=== PATIENT | female | born 1985 | race Caucasian/White ===

== ENCOUNTER 2016-05-27 20:15 | Outpatient (CLI) | payer OTHER ==
[~2016-05-27] VITALS: Ht 165.1 cm; Wt 76.4 kg
[2016-05-27 21:00] VITALS: BP 132/79
[2016-05-27 21:15] LABS: BILIRUBIN,URINE Negative (Negative); GLUCOSE, URINE (UA) Negative (Negative); LEUKOCYTE ESTERASE ,URINE Negative (Negative); PH,URINE 6.5 (5.0 - 8.0); UROBILINOGEN,URINE 0.2 mg/dL (0.2-1.0)
[2016-05-27 21:19] LABS: CLARITY,URINE Slightly Cloudy; COLOR,URINE Light Yellow
[2016-05-27 21:20] LABS: RBC,URINE 0-2 /HPF; URINE CENTRIFUGED VOLUME <10mL Unspun
[2016-05-27] MEDS ORDERED: PNV91TAB3 PO (21:24)
[2016-05-27 22:00] VITALS: BP 122/76
[2016-05-27] MEDS ORDERED: TERBUTALINE 1 MG/ML (BRETHINE) 1 ML AMP ONE (22:08)
[2016-05-27] MEDS ORDERED: TERBUTALINE 1 MG/ML (BRETHINE) 1 ML AMP SC ONE ×2 (22:15→23:15)
[2016-05-27 23:00] VITALS: BP 125/75
[2016-05-27] MEDS ORDERED: fentaNYL 100 MCG/2 ML VIAL ONE (23:07)
[2016-05-27] MEDS: fentaNYL 100 MCG/2 ML VIAL IV PRN (23:09)
[2016-05-27] MEDS ORDERED: [UNRECOGNIZED DRUG - OTHER] IM ONE (23:39)
[2016-05-27 23:53] VITALS: BP 122/68
[2016-05-28] MEDS ORDERED: SODIUM CHLORIDE 100 ML ONE (00:05)
[2016-05-28] MEDS ORDERED: AMPICILLIN 2000 MG VIAL ONE (00:05)
[2016-05-28] MEDS ORDERED: AMPICILLIN INJ 2,000 MG in SODIUM CHLORIDE 100 ML IV ONE (00:05)
[2016-05-28] MEDS ORDERED: NIFEDIPINE 10 MG PO SCH (00:10)
[2016-05-28] MEDS ORDERED: NIFEDIPINE 10 MG PO ONE (00:10)
--- NOTE | 2016-05-28 00:13 | History and Physical (E) ---
History & Physical (OB) Subjective: CC: contractions 30 year old at 33 3/7 WGA by LMP, confirmed by 10 week ultrasound, presents this evening with contractions. She started having what she felt were Ermias-Arndt this morning, which progressed to stronger contractions spaced 6- 7 minutes apart by this evening. On presentation, she was jordan every 2-4 minutes with moderate intensity. She had some mild cramping last week preceded by a general feeling of malaise, but felt well again until today. This has been uncomplicated other than Rh- status. PNC: [facility] OB Hx: SVDx3, at 39, 38, and 37 weeks respectively PMHx: none PSHx: to [facility]. Homemaker. Mennonite. No tob/EtOH/ILD. Fam HX: adopted Allergies: Coded Allergies: No Known Drug Allergies (Unverified , 05/27/16) Home Medications: Reported Medications Pnv95/Ferrous Fumarate/FA ( Caplet)1 Each Tablet1 Each PO DAILY 05/27/16 Objective: Vital Signs Date Time Temp Pulse Resp B/P Pulse Ox O2 Delivery O2 Flow Rate FiO2 05/27/16 22:00 99.2 113 26 122/76 Laboratory Results Past 24 Hrs 05/27/16 20:25: Urine Bacteria Rare, Urine Bilirubin Negative, Urine Clarity Slightly cloudy, Urine Collection Type Random voided, Urine Color Light yellow, Urine Glucose (UA ) Negative, Urine Ketones Negative, Urine Leukocyte Esterase Negative, Urine Nitrite Negative, Urine Protein Negative, Urine RBC 0-2, Urine RBC (Auto) Trace- intact, Urine Specific [employer] 1.010, Urine Squamous Epithelial Cells >100, Urine Urobilinogen 0.2, Urine WBC 0-2, Urine pH 6.5, Volume Urine Centrifuged < 10ml unspun General: Alert and oriented, NAD Chest: CTA Abdomen: Gravid Cardiovasular: RRR, No murmur Extremities: No edema FHT's: 150s, mod reactive, + accels, no decels Cat I Cvx: 2.5/50/-3, intact membranes Brule: Q1-2 min Screenings: Blood type: A Negative, Rubella Immune , RPR non-reactive, HBV Negative, HIV Negative , GBS Unknown. Problems/Plans: (1) contractions Assessment & Plan: Patient was given 1L NS with no change in contractions, and UA was negative. 0.25mg of terbutaline was administered with a brief lessening of intensity, but no decrease in frequency. No cervical change as of approx 2 hours from presentation, so another dose of terbutaline was given as well as 25mcg fentanyl for pain relief. That helped with the pain of the contractions, but again no change in strength or frequency. Cervix at that time was slightly more effaced, so the decision was made to transfer to higher level of care for possible delivery and need of a NICU. We discussed the possibility of continued tocolysis until her cervix made more change, but with her history of rapid labors, I felt it was prudent to transfer sooner rather than later. 12mg of betamethasone was given, and 2gm ampicillin started for GBS prophylaxis. Discussed with Dr. Swathi Dawn at [facility] and she is accepting. She recommended a 20mg dose of nifedipine before transfer, so that was given as well. (2) with 33 completed weeks gestation (3) Rh negative status during Assessment & Plan: Rhogam received at 28 weeks. Additional Copies to: End of Report . KAM CORREA MD May 27, 2016 23:21
[2016-05-28] MEDS: fentaNYL 100 MCG/2 ML VIAL IV PRN (00:21)
[2016-05-28] MEDS ORDERED: [UNRECOGNIZED DRUG - OTHER] IM SCH (09:00)
[2016-06-25] MEDS ORDERED: IBUP-1772 PO (12:09)
== END 2016-05-28 00:47 | disposition other institution (70) ==
LOC: EUOP 20:15 → OB 20:16 → EUOP 05-28 00:47
PROVIDERS: ATTEND Family Medicine
DX: O47.03 False labor before 37 completed weeks of gestation, third trimester (principal); Z3A.33 33 weeks gestation of pregnancy
CPT/HCPCS: 81003; 81015; 96361; 96365; 96372; 96375; 96376; 99205; J0290; J0702; J3010; J3105; J7030; J7050

== ENCOUNTER → 2016-05-28 | Outpatient (CLI) | payer OTHER ==
[~2016-05-28] MED LIST: IBUP-1772 PO; PNV91TAB3 PO
== END ==
LOC: EMS 01:00
DX: O47.03 False labor before 37 completed weeks of gestation, third trimester (principal); Z3A.33 33 weeks gestation of pregnancy

== ENCOUNTER 2016-06-19 05:13 | Outpatient (CLI) | payer OTHER ==
[~2016-06-19] VITALS: Ht 165.1 cm; Wt 77.7 kg
[2016-06-19 05:25] VITALS: BP 116/80
[2016-06-19 07:30] VITALS: BP 119/77
== END 2016-06-19 07:40 | disposition home or self-care (01) ==
LOC: OB 05:13 → EUOP 05:13
PROVIDERS: ATTEND Family Medicine
DX: O47.03 False labor before 37 completed weeks of gestation, third trimester (principal); Z3A.36 36 weeks gestation of pregnancy
CPT/HCPCS: 99203

== ENCOUNTER 2016-06-24 12:25 | Inpatient (IN) | payer OTHER ==
[~2016-06-24] VITALS: Ht 165.1 cm; Wt 80.0 kg
[2016-06-24] VITALS (15 sets, daily range): BP systolic 103–133; BP diastolic 58–84
[2016-06-24] MEDS ORDERED: OXYTOCIN INJ 20 UNIT in NS 1000ml 1,000 ML IV PRN (12:51)
[2016-06-24] MEDS ORDERED: SODIUM CHLORIDE FLUSH 3 ML SYR IV PRN (12:55)
[2016-06-24] MEDS ORDERED: CALCIUM CARBONATE CHEWABLE 300 MG (TUMS) TABLET PO PRN (12:55)
[2016-06-24] MEDS ORDERED: SODIUM CHLORIDE FLUSH 10 ML SYR IV PRN (12:55)
[2016-06-24] MEDS ORDERED: AMPICILLIN INJ 2,000 MG in SODIUM CHLORIDE 100 ML IV SCH (12:55)
[2016-06-24] MEDS ORDERED: SODIUM CHLORIDE 100 ML ONE (12:57)
[2016-06-24] MEDS ORDERED: AMPICILLIN 2000 MG VIAL ONE (12:57)
[2016-06-24 13:19] LABS: MEAN CORPUSCULAR HEMOGLOBIN 29.9 PG (26.0-34.0); MEAN PLATELET VOLUME 10.8 FL (6.0-9.5); WHITE BLOOD COUNT 8.23 10^3uL (4.0-11.0)
[2016-06-24] MEDS ORDERED: OXYTOCIN INJ 20 UNIT in NS 1000ml 1,000 ML IV SCH (15:45)
[2016-06-24] MEDS ORDERED: ROPIVACAINE 1% 10 MG/ML (NAROPIN) 20 ML AMPUL ONE (16:00)
[2016-06-24] MEDS ORDERED: AMPICILLIN INJ 1,000 MG in SODIUM CHLORIDE 50 ML IV SCH (16:55)
[2016-06-24] MEDS ORDERED: LANOLIN OINTMENT 28 GM TUBE TOP PRN (18:50)
[2016-06-24] MEDS ORDERED: HYDROcodone/APAP 5 MG/325 MG (NORCO) TAB PO PRN (18:50)
[2016-06-24] MEDS ORDERED: ARTIFICIAL TEARS (REFRESH) OPHTHALMIC DROPS OS PRN (19:25)
[2016-06-24] MEDS ORDERED: DOCUSATE SODIUM 100 MG (COLACE) CAP PO SCH (21:00)
[2016-06-24] MEDS ORDERED: SODIUM CHLORIDE FLUSH 10 ML ONE (21:22)
[2016-06-24] MEDS: IBUPROFEN 600 MG (MOTRIN) TAB PO PRN (22:29)
[2016-06-25 08:00] VITALS: BP 128/68
[2016-06-25] MEDS: IBUPROFEN 600 MG (MOTRIN) TAB PO PRN (10:03)
[2016-06-25] MEDS ORDERED: M-M-R II (MEASLES,MUMPS,RUBELLA) VACCINE SC ONE (13:00)
--- NOTE | 2016-06-25 18:50 | NUR ---
Dismissed ambulatory to home, accompanied by and OB staff. Final OB instructions provided prior to leaving. Pt. verbalizes understanding of self care and all instructions.
== END 2016-06-25 18:50 | disposition home or self-care (01) | DRG 774 ==
LOC: OB 12:45
PROVIDERS: ADMIT Family Medicine; ATTEND Family Medicine
PROC: 10E0XZZ Delivery of Products of Conception, External Approach (ICD-10-PCS; principal; 2016-06-24)
DX: O99.824 Streptococcus B carrier state complicating childbirth (principal); O74.8 Other complications of anesthesia during labor and delivery; G51.0 Bell's palsy; O69.2XX0 Labor and delivery complicated by other cord entanglement, with compression, not applicable or unspecified; O62.3 Precipitate labor; O71.82 Other specified trauma to perineum and vulva; Y92.238 Other place in hospital as the place of occurrence of the external cause; Z3A.37 37 weeks gestation of pregnancy; Z37.0 Single live birth
CPT/HCPCS: 36415; 85014; 85018; 85027; 86850; 86870; 86900; 86901; 90707